=== PATIENT | male | born 1940 | race Two or more races ===

== ENCOUNTER 2020-03-19 09:00 | Outpatient (REF) | payer MEDICARE, SELFPAY ==
[2020-03-19 10:10] LABS: MANUAL DIFF FLAG NO
[2020-03-19 10:17] LABS: Basophils Absolute Auto 0.1 X10*3/uL (0.0-0.2); Basophils Percent Auto 1.1 % (0-2); Eosinophils Absolute Auto 0.1 X10*3/uL (0.0-0.4); Eosinophils Percent Auto 1.4 % (0-4); Hemoglobin 13.7 g/dl (14.0-18.0); Imm Gran Abs Auto 0.03 X10*3/uL (0.00-0.03); Imm Gran Pct Auto 0.4 % (0.0-0.4); Lymphocytes Percent Auto 26.9 % (20-40); Mean Corpuscular HGB Conc 31.1 g/dl (31.0-36.0); Mean Corpuscular Hemoglobin 29.7 pg (27.0-33.0); Mean Corpuscular Volume 95.4 fL (80-98); Mean Platelet Volume 10.3 fL (9.4-12.4); Monocytes Absolute Auto 0.7 X10*3/uL (0.1-1.2); Neutrophils Absolute Auto 4.4 X10*3/uL (2.0-8.3); Neutrophils Percent Auto 60.2 % (45-73); Platelet Count 240 X10*3/uL (160-400); Red Blood Count 4.61 X10*6/uL (4.60-5.80); Red Cell Distribution Width 13.4 % (11.0-16.0); White Blood Count 7.3 X10*3/uL (4.8-10.8)
[2020-03-19 11:00] LABS: Alanine Aminotransferase 22 U/L (0-40); Albumin Level 4.3 g/dL (3.5-5.0); Alkaline Phosphatase 77 U/L (39-117); Anion Gap 12 (12-20); Aspartate Amino Transferase 20 U/L (5-37); Bilirubin Total 0.4 mg/dL (0.0-1.0); Blood Urea Nitrogen 11 mg/dL (9-16); Calcium 9.2 mg/dL (8.4-10.2); Carbon Dioxide 30 mmol/L (22-29); Chloride 104 mmol/L (96-108); Cholesterol 169 mg/dL; Estimated Glomerular Filt Rate 59; Glucose Fasting 84 mg/dL (60-99); HDL Cholesterol 46 mg/dL; Iron 49 mcg/dL (45-160); LDL Cholesterol Calculated 97 mg/dl; Percent Iron Saturation 11 % (15-50); Potassium 4.5 mmol/l (3.3-5.1); Sodium 141 mmol/L (135-145); Total Iron Binding Capacity 442 mcg/dL (228-428); Total Protein 7.5 g/dL (6.5-8.0); Triglycerides 133 mg/dL; Unsaturated Iron Binding 393 ug/dL
== END 2020-03-19 09:01 | disposition home or self-care (01) ==
LOC: HO.LAB 09:00
PROVIDERS: PCP Internal Medicine; Visit Provider Internal Medicine
DX: E78.00 Pure hypercholesterolemia, unspecified (principal); D50.0 Iron deficiency anemia secondary to blood loss (chronic)
CPT/HCPCS: 36415; 80053; 80061; 83540; 85025

== ENCOUNTER 2021-04-17 09:29 | Outpatient (REF) | payer MEDICARE, SELFPAY ==
[2021-04-17 10:26] LABS: Alanine Aminotransferase 14 U/L (0-40); Albumin Level 4.1 g/dL (3.5-5.0); Alkaline Phosphatase 73 U/L (39-117); Anion Gap 11 (12-20); Aspartate Amino Transferase 15 U/L (5-37); Bilirubin Total 0.5 mg/dL (0.0-1.0); Blood Urea Nitrogen 13 mg/dL (9-16); Calcium 9.1 mg/dL (8.4-10.2); Carbon Dioxide 29 mmol/L (22-29); Chloride 106 mmol/L (96-108); Cholesterol 218 mg/dL; Estimated Glomerular Filt Rate > 60; Glucose Fasting 88 mg/dL (60-99); HDL Cholesterol 54 mg/dL; LDL Cholesterol Calculated 142 mg/dl; Potassium 4.8 mmol/L (3.3-5.1); Sodium 141 mmol/L (135-145); Total Protein 7.8 g/dL (6.5-8.0); Triglycerides 110 mg/dL
== END 2021-04-17 09:30 | disposition home or self-care (01) ==
LOC: HO.LAB 09:29
PROVIDERS: PCP Internal Medicine; Visit Provider Internal Medicine
DX: E78.00 Pure hypercholesterolemia, unspecified (principal); E78.5 Hyperlipidemia, unspecified
CPT/HCPCS: 36415; 80053; 80061

== ENCOUNTER 2021-07-16 10:32 | Emergency (ER) | payer MEDICARE, SELFPAY ==
[2021-07-16] VITALS (7 sets, daily range): BP systolic 149–179; BP diastolic 70–91; PULSE 76–98; RESP 16–19; TEMP 36.6–36.9; O2SAT 94–98; BMI 25.0
--- NOTE | ~2021-07-16 | CT_ITS ---
EXAMINATION: CT ABDOMEN AND PELVIS WITH CONTRAST CLINICAL INFORMATION: Hiccups, poor ostomy output, AP. COMPARISON: CT scan abdomen and pelvis 10/26/2017. TECHNIQUE: Multidetector volumetric images were obtained from the superior aspect of the liver through the pubic symphysis following administration 85 mL of Omnipaque 350 intravenous contrast. Sagittal and coronal reformatted images were obtained on the technologist's workstation. Oral contrast: No This CT examination was performed using dose optimization techniques as appropriate, variously including the following: *Automated exposure control *Adjustment of mA and/or kV according to patient size (this includes techniques or standardized protocols for targeted exams where dose is matched to indication/reason for exam; i.e. extremities or head) *Use of iterative reconstruction technique DLP: 691 mGy-cm FINDINGS: LUNG BASES: The visualized lung bases are unremarkable. LIVER, GALLBLADDER, AND BILIARY TREE: The liver is normal in size, shape, and attenuation. No focal hepatic lesion or biliary ductal dilatation is present. Calcified gallstones in the fundus of the gallbladder. No edema around the gallbladder. No bile duct dilatation. PANCREAS: Unremarkable. SPLEEN: Unremarkable. ADRENAL GLANDS: Unremarkable. KIDNEYS AND URETERS: The kidneys are normal in size, shape, and attenuation. No hydronephrosis, hydroureter, or calculi seen. No perinephric stranding. BLADDER: Unremarkable. GASTROINTESTINAL TRACT: Status post partial sigmoidectomy. Left-sided colostomy. There is a parastomal hernia associated with the colostomy involving small-bowel loops that are not obstructed. Kev's pouch present. There is stool and contrast in the Kev's pouch. There are numerous diverticula of the descending colon without evidence of diverticulitis. No bowel obstruction. No bowel wall thickening or edema. Moderate volume of stool in the colon. The appendix is normal. The small-bowel loops are normal. Small hiatal hernia. Stomach is otherwise unremarkable. ABDOMINAL WALL: There is a left-sided mid abdominal parastomal ventral wall hernia. Nonobstructed loops of small bowel extend into the hernia sac. LYMPH NODES: Normal. VASCULAR: Unremarkable. PELVIC VISCERA: Prostate measures 5 cm transverse. OSSEOUS STRUCTURES: Degenerative spondylosis of the spine. No acute osseous abnormality. CT/CT abdomen pelvis w con IMPRESSION: 1. No acute abnormality. 2. Status post sigmoidectomy. Left-sided colostomy. 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 Diverticulosis of descending colon without evidence of diverticulitis. No bowel obstruction or bowel wall thickening or edema. 3. Cholelithiasis. Fleischner guidelines were followed.
--- NOTE | ~2021-07-16 | XR_ITS ---
EXAMINATION: XR CHEST CLINICAL INFORMATION: 4 7 days. COMPARISON: Chest 06/01/2019 TECHNIQUE: 2 views of the chest were obtained. FINDINGS: The lungs are well-expanded and clear acute pneumonic process. The heart size and pulmonary vascularity is normal. There is mild spondylosis dorsal spine. No lytic process seen. XR/XR chest 2V IMPRESSION: Unremarkable chest exam.
--- NOTE | 2021-07-16 12:05 | ED.GENADULT ---
HPI - General Adult General Chief complaint: General Medical Stated complaint: severe hiccups Time Seen by Provider: 07/16/21 11:27 Source: patient and medical interpreter Mode of arrival: ambulatory Limitations: language barrier History of Present Illness HPI narrative: 80-year-old male with a history of colon cancer in 2014 status post resection status post chemotherapy, hypertension, hyperlipidemia here with reports of hiccups x 7 days. Patient reports decreased p.o. intake secondary to hiccups. He also has a colostomy bag which he says he has not had output from since yesterday morning. He reports some abdominal discomfort. No vomiting, fever Related Data Home Medications Medication Instructions Recorded Confirmed amlodipine 2.5 mg tablet 1 tab PO DAILY 03/05/20 04/16/21 aspirin 81 mg tablet,delayed 1 tab PO DAILY 03/05/20 04/16/21 release Previous Rx's Medication Instructions Recorded ostomy adhesive (Stomahesive Paste) 1 appl MISCELLANEOUS Q OTHER DAY 05/14/20 #56.7 g ostomy supplies (Skin Prep Wipes) #50 ea 05/14/20 ostomy supplies 1 3/4 #1 ea 05/14/20 ostomy supplies 1 (Active Life #5 ea 05/14/20 Convex Drainable Pouch) acetaminophen 500 mg tablet 500 mg PO Q6H PRN 30 Days #120 tab 04/16/21 atorvastatin 40 mg tablet 40 mg PO DAILY #90 tab 07/09/21 Allergies Allergy/AdvReac Type Severity Reaction Status Date / Time oxycodone Allergy Intermediate Rash Verified 04/16/21 10:26 Review of Systems Review of Systems: Yes all other systems are reviewed and are negative Constitutional: Constitutional: Reports no additional constitutional complaints, Denies body ache(s), Denies chills, Denies fever(s), Denies headache(s), Reports poor appetite and Denies weakness Eyes: Eyes: Reports no additional eye complaints and Denies change in vision ENT: Reports system reviewed and no additional complaints, except as documented, Denies dizziness, Denies headache(s), Denies nasal congestion, Denies nasal discharge and Denies neck pain Cardiovascular: Cardiovascular: Reports no additional cardiovascular complaints, Denies chest pain, Denies leg edema and Denies dyspnea Respiratory: Respiratory: Reports no additional respiratory complaints, Denies cough and Denies dyspnea Gastrointestinal: Gastrointestinal: Reports no additional gastrointestinal complaints, Reports abdominal pain, Denies diarrhea, Reports nausea and Denies vomiting Comments: +Hiccups Genitourinary: Genitourinary: Denies urinary incontinence Musculoskeletal: Musculoskeletal: Reports no additional musculoskeletal complaints, Denies back pain, Denies arthralgias, Denies joint swelling, Denies neck pain, Denies numbness and Denies tingling Integumentary/Breasts: Skin/Breast: Reports system reviewed and no additional complaints, except as docu and Denies rash Neurologic: Reports system reviewed and no additional complaints, except as documented, Denies dizziness, Denies headache(s), Denies numbness, Denies tingling and Denies weakness PMFSH Past Medical History Attestation statement: The following information was validated with the patient. Source: old records reviewed and nursing notes reviewed Medical History Blurry vision Colostomy in place CVA (cerebral vascular accident) Encounter for physical examination Essential hypertension Left hip pain Neuropathy Pure hypercholesterolemia Surgical History History of hemicolectomy Family History Family History Father Medical history unknown Mother Medical history unknown Social History Social History Housing: Apartment Alcohol intake: current Alcohol intake frequency: a few times a week Alcohol type: beer Patient Tobacco Use Status: Never used Tobacco Tobacco use type: Cigarette e-Cigarette/Vaping Use: Never Used Second Hand Smoke Exposure: No Use of substances other than those prescribed or required for medical reasons: No Advance Directives: No Advance Directives Information Provided: Yes service: No Current occupational status: disabled Physical Exam ED Vital Signs: Vital Signs - 24 hr 07/16/21 10:42 07/16/21 12:44 07/16/21 12:46 Temperature 98 F Pulse Rate 98 81 Respiratory Rate 19 18 Blood Pressure 156/86 H 179/74 H Pulse Oximetry 98 94 07/16/21 12:51 07/16/21 14:49 07/16/21 18:31 Temperature 98.4 F Pulse Rate 78 79 Respiratory Rate 18 16 Blood Pressure 149/70 H 153/79 H Pulse Oximetry 97 97 03// 19:16 Temperature Pulse Rate 76 Respiratory Rate Blood Pressure 151/91 H Pulse Oximetry BMI result Body Mass Index 25.0 Const General: cooperative, healthy appearing, comfortable and no acute distress Orientation/consciousness: patient oriented x3 Limitations: no limitations HENMT Head: Yes normal to inspection Ears: hearing grossly normal bilaterally and TM's normal bilaterally General nose exam: Normal external nose present Face and sinus: Yes normal facial exam Mouth: Normal oral and palatal mucosa present Teeth and gingiva: dentition normal Throat: Yes posterior oropharynx normal, Yes tonsils normal and Yes uvula midline Eyes General: appearance normal, both eyes and all related structures Pupils: Equal, round and reactive pupils present Neck Neck: Yes normal visual inspection, Yes full ROM, Yes no lymphadenopathy and Yes no meningeal signs Chest Chest palpation & inspection: normal inspection of the chest Resp Effort & Inspection: normal respiratory effort Auscultation: clear to auscultation bilaterally Cardio Rate: regular rate Rhythm: regular rhythm Peripheral pulses: Peripheral pulses 2+ throughout GI Other: Colostomy bag the left lower quadrant Abdomen soft and nontender Palpation (GI): Soft to palpation and nontender General: Yes no CVA tenderness Back/Spine/Pelvis Back: no CVA tenderness Skin General skin exam: no rashes or lesions noted Neuro General: patient oriented x3 and no meningeal signs Cranial nerves: Yes CN's II-XII intact bilaterally, Yes Equal, round and reactive pupils present, Yes Bilaterally intact EOM present, Yes Nystagmus not present, Yes Normal facial strength present and Yes Midline tongue present Cognition (Neuro): normal cognition Gait exam (Neuro): Normal gait present Motor exam (neuro): 5/5 motor strength present throughout Sensory Exam: Normal double simultaneous stimulation for sensation Extrem General: Yes normal to inspection, Yes no pedal edema and Yes no calf tenderness Course Course Course Narrative: 80-year-old male here with intractable hiccups for 7 days. Patient has remote history of colon cancer status post resection. Anticipate patient will need CT abdomen and pelvis to eval for mass. Meanwhile will check labs, chest x-ray, EKG d/t age. Trial benzo as thorazine contraindicated in this age [age]-continued hiccups, will trial baclofen 5-hiccups improved but not resolved. Labs, chest x-ray, CT abdomen and pelvis show no acute finding. Will trial reglan/benadryl 1800-Continued hiccups. Will give single dose 25mg IM thorazine. 1840-hiccups are resolved. Plan for discharge home. Reviewed worrisome signs and symptoms when to return to the emergency department. Comfortable discharge home. Medical Decision Making MDM Narrative Medical decision making narrative: intractable hiccups mass acs Medical Records Medical records reviewed: Yes I reviewed the patient's medical records. Lab Data Lab results reviewed: Yes I reviewed the patient's lab results. Result diagrams: 07/16/21 12:33 07/16/21 12:41 Labs: Lab Results 07/16/21 07/16/21 Range/Units 12:33 12:41 WBC 9.6 (4.8-10.8) X10*3/uL RBC 4.71 (4.60-5.80) X10*6/uL Hgb 15.0 (14.0-18.0) g/dl Hct 45.9 (42.0-52.0) % MCV 97.5 (80.0-98.0) fL MCH 31.8 (27.0-33.0) pg MCHC 32.7 (31.0-36.0) g/dl RDW 12.8 (11.0-16.0) % Plt Count 228 (160-400) X10*3/uL MPV 10.2 (9.4-12.4) fL Immature Gran % (Auto) 0.4 (0.0-0.4) % Neut % (Auto) 70.5 (45-73) % Lymph % (Auto) 17.7 L (20-40) % [place] % (Auto) 10.3 (2-11) % Eos % (Auto) 0.6 (0-4) % Baso % (Auto) 0.5 (0-2) % Lymph # (Auto) 1.7 (1.2-4.9) X10*3/uL [place] # (Auto) 1.0 (0.1-1.2) X10*3/uL Eos # (Auto) 0.1 (0.0-0.4) X10*3/uL Baso # (Auto) 0.1 (0.0-0.2) X10*3/uL Abs Immat Gran (auto) 0.04 H (0.00-0.03) X10*3/uL Absolute Neuts (auto) 6.8 (2.0-8.3) x10*3/uL Absolute Nucleated RBC 0.000 (0.0-0.012) X10*3/uL Nucleated RBC % (auto) 0.0 (0.0-0.2) /100WBC Sodium 142 (135-145) mmol/L Potassium 4.4 (3.3-5.1) mmol/L Chloride 102 (96-108) mmol/L Carbon Dioxide 31 H (22-29) mmol/L Anion Gap 13 (12-20) BUN 18 H (9-16) mg/dL Creatinine 1.07 (0.5-1.4) mg/dL Estim Creat Clear Calc 48.6 Estimated GFR > 60 Random Glucose 82 (60-115) mg/dL Calcium 9.8 D (8.4-10.2) mg/dL Magnesium 2.3 (1.6-2.6) mg/dL Total Bilirubin 0.9 (0.0-1.0) mg/dL Direct Bilirubin 0.4 (0.0-0.5) mg/dL AST 16 (5-37) U/L ALT 15 (0-40) U/L Alkaline Phosphatase 83 (39-117) U/L Total Protein 7.9 (6.5-8.0) g/dL Albumin 4.4 (3.5-5.0) g/dL Imaging Data Chest x-ray: Attestation: I personally reviewed and interpreted this imaging study as follows: Radiologist's impression: [place] [id number] XRay Report Signed Patient: Nelson Terrell MR#: [id number] : 1940 Acct:[id number] Age/Sex: 80 / M ADM Date: 07/16/21 Loc: .ED Attending Dr: Ordering Physician: Vi Garcia NP Date of Service: 07/16/21 Procedure(s): XR chest 2V Accession Number(s): [id number] cc: Vi Garcia NP~ EXAMINATION: XR CHEST CLINICAL INFORMATION: 4 7 days. COMPARISON: Chest 06/01/2019 TECHNIQUE: 2 views of the chest were obtained. FINDINGS: The lungs are well-expanded and clear acute pneumonic process. The heart size and pulmonary vascularity is normal. There is mild spondylosis dorsal spine. No lytic process seen. XR/XR chest 2V IMPRESSION: Unremarkable chest exam. CT scan - abdomen: Attestation: I personally reviewed and interpreted this imaging study as follows: Radiologist's impression: FINDINGS: LUNG BASES: The visualized lung bases are unremarkable.? LIVER, GALLBLADDER, AND BILIARY TREE: The liver is normal in size, shape, and attenuation. No focal hepatic lesion or biliary ductal dilatation is present. Calcified gallstones in the fundus of the gallbladder. No edema around the gallbladder. No bile duct dilatation. PANCREAS: Unremarkable.? SPLEEN: Unremarkable.? ADRENAL GLANDS: Unremarkable.? KIDNEYS AND URETERS: The kidneys are normal in size, shape, and attenuation. No hydronephrosis, hydroureter, or calculi seen. No perinephric stranding. ? BLADDER: Unremarkable.? GASTROINTESTINAL TRACT: Status post partial sigmoidectomy. Left-sided colostomy. There is a parastomal hernia associated with the colostomy involving small-bowel loops that are not obstructed. Kev's pouch present. There is stool and contrast in the Kev's pouch. There are numerous diverticula of the descending colon without evidence of diverticulitis. No bowel obstruction. No bowel wall thickening or edema. Moderate volume of stool in the colon. The appendix is normal. The small-bowel loops are normal. Small hiatal hernia. Stomach is otherwise unremarkable.? ABDOMINAL WALL: There is a left-sided mid abdominal parastomal ventral wall hernia. Nonobstructed loops of small bowel extend into the hernia sac. LYMPH NODES: Normal. VASCULAR: Unremarkable. PELVIC VISCERA: Prostate measures 5 cm transverse.? OSSEOUS STRUCTURES: Degenerative spondylosis of the spine. No acute osseous abnormality.? CT/CT abdomen pelvis w con IMPRESSION: 1. No acute abnormality. ? 2. Status post sigmoidectomy. Left-sided colostomy. 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 Diverticulosis of descending colon without evidence of diverticulitis. No bowel obstruction or bowel wall thickening or edema. ? 3. Cholelithiasis. ? Fleischner guidelines were followed. Discharge Plan Discharge Clinical Impression: Hiccups Patient Disposition: Home, Self-Care Instructions: Hiccups (ED) Prescriptions: No Action (DME) Active Life Convex Drain Pouch 1 misc See Rx Instructions .ROUTE .MEDSUPPLY Qty: 5 5RF Rx Instructions: As directed (DME) ostomy supplies 1 3/4 misc See Rx Instructions .ROUTE .MEDSUPPLY Qty: 1 5RF Rx Instructions: As directed Stomahesive Paste Paste 1 appl miscellaneous Q OTHER DAY Qty: 56.7 5RF (DME) Skin Prep Wipes Misc See Rx Instructions .ROUTE .MEDSUPPLY Qty: 50 3RF Rx Instructions: As directed, atorvastatin 40 mg tablet 40 mg PO DAILY Qty: 90 3RF amlodipine 2.5 mg tablet 1 tab PO DAILY 0RF aspirin 81 mg tablet,delayed release (DR/EC) 1 tab PO DAILY 0RF acetaminophen 500 mg tablet 500 mg PO Q6H PRN (Reason: Pain) 30 Days Qty: 120 4RF Referrals: Yolande Reyna MD [Primary Care Provider] - 5 days Interventions: ED Discharge Assessment Last Done: 07/16/21 19:19 Discharge Date/Time: 07/16/21 19:21 Print Language: Bangladeshi
--- NOTE | 2021-07-16 12:24 | ECG_ITS ---
Test Reason : HICCUPS Blood Pressure : / mmHG Vent. Rate : 077 BPM Atrial Rate : 077 BPM P-R Int : 190 ms QRS Dur : 086 ms QT Int : 410 ms P-R-T Axes : 029 039 041 degrees QTc Int : 463 ms Normal sinus rhythm Normal ECG When compared with ECG of 01-JUN-2019 10:30, No significant change was found Referred By: Vi Garcia Electronically Signed By:LUNA NÚÑEZ
[2021-07-16 12:48] LABS: MANUAL DIFF FLAG NO
--- NOTE | 2021-07-16 12:49 | PC.NURSE ---
pt presents with mild hiccups, does not c/o pain but discomfort r/t continuous hiccups
[2021-07-16 12:51] LABS: Basophils Absolute Auto 0.1 X10*3/uL (0.0-0.2); Basophils Percent Auto 0.5 % (0-2); Eosinophils Absolute Auto 0.1 X10*3/uL (0.0-0.4); Eosinophils Percent Auto 0.6 % (0-4); Hematocrit 45.9 % (42.0-52.0); Imm Gran Abs Auto 0.04 X10*3/uL (0.00-0.03); Imm Gran Pct Auto 0.4 % (0.0-0.4); Lymphocytes Absolute Auto 1.7 X10*3/uL (1.2-4.9); Lymphocytes Percent Auto 17.7 % (20-40); Mean Corpuscular HGB Conc 32.7 g/dl (31.0-36.0); Mean Corpuscular Hemoglobin 31.8 pg (27.0-33.0); Mean Corpuscular Volume 97.5 fL (80.0-98.0); Mean Platelet Volume 10.2 fL (9.4-12.4); Monocytes Percent Auto 10.3 % (2-11); Neutrophils Absolute Auto 6.8 x10*3/uL (2.0-8.3); Neutrophils Percent Auto 70.5 % (45-73); Platelet Count 228 X10*3/uL (160-400); Red Blood Count 4.71 X10*6/uL (4.60-5.80); Red Cell Distribution Width 12.8 % (11.0-16.0); White Blood Count 9.6 X10*3/uL (4.8-10.8)
[2021-07-16] MEDS: LORazepam 2 MG/ML VIAL 1 MG IVPUSH (12:59)
[2021-07-16 13:17] LABS: Alanine Aminotransferase 15 U/L (0-40); Albumin Level 4.4 g/dL (3.5-5.0); Alkaline Phosphatase 83 U/L (39-117); Anion Gap 13 (12-20); Aspartate Amino Transferase 16 U/L (5-37); Bilirubin Direct 0.4 mg/dL (0.0-0.5); Bilirubin Total 0.9 mg/dL (0.0-1.0); Blood Urea Nitrogen 18 mg/dL (9-16); Calcium 9.8 mg/dL (8.4-10.2); Carbon Dioxide 31 mmol/L (22-29); Chloride 102 mmol/L (96-108); Creatinine Clr Calc Pharmacy 48.6; Estimated Glomerular Filt Rate > 60; Glucose Random 82 mg/dL (60-115); Magnesium 2.3 mg/dL (1.6-2.6); Potassium 4.4 mmol/L (3.3-5.1); Sodium 142 mmol/L (135-145); Total Protein 7.9 g/dL (6.5-8.0)
[2021-07-16] MEDS: iohexoL 350 MG/ML 100 ML INFUS..BTL IV (14:50)
--- NOTE | 2021-07-16 14:50 | PC.NURSE ---
pt alert and oriented, skin appropriate for ethnicity, pt appear more relaxed but still continuos with the hiccups, pt denies pain, vs stable
[2021-07-16] MEDS: Baclofen 10 MG TABLET PO (15:13)
[2021-07-16] MEDS: Metoclopramide HCl 10 MG/2 ML VIAL IVPUSH (17:04)
[2021-07-16] MEDS: diphenhydrAMINE HCL 50 MG/ML VIAL 25 MG IVPUSH (17:04)
== END 2021-07-16 19:21 | disposition home or self-care (01) ==
PROVIDERS: Nurse Practitioner Family; Emergency Provider Emergency Medicine; PCP Internal Medicine
DX: R06.6 Hiccough (principal); I10 Essential (primary) hypertension; E78.5 Hyperlipidemia, unspecified; Z85.038 Personal history of other malignant neoplasm of large intestine; Z93.3 Colostomy status; Z79.82 Long term (current) use of aspirin; Z79.02 Long term (current) use of antithrombotics/antiplatelets
CPT/HCPCS: 36415; 71046; 74177; 80048; 80076; 83735; 85025; 93005; 96372; 96374; 96375; 99284; 99285; J1200; J2060; J2765; J3230; Q9967

== ENCOUNTER → 2021-08-27 13:51 | Outpatient (BNVA) | payer MEDICARE, SELFPAY | PROVIDERS: PCP Internal Medicine; Referring Provider Internal Medicine; Visit Provider Surgery | DX: K43.5 Parastomal hernia without obstruction or gangrene (principal) | CPT/HCPCS: 99202 ==

== ENCOUNTER 2023-11-23 14:36 | Outpatient (AMB) | payer MEDICARE, SELFPAY ==
--- NOTE | 2023-11-23 14:42 | A.OFFPC_ITS ---
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 Accompanied by: Self / Same As Patient Allergies oxycodone Allergy (Intermediate, Verified 11/23/23 15:05) Rash Medication List - Last Reconciled 11/23/23 by Yolande Moseley MD acetaminophen 500 mg PO Q6H PRN 30 days aspirin 1 tab PO DAILY atorvastatin 40 mg PO DAILY lisinopril 10 mg PO DAILY 90 days ostomy adhesive (Stomahesive Paste) 1 appl miscellaneous Q OTHER DAY ostomy supplies (Active Life Convex Drainable Pouch) As directed ostomy supplies As directed ostomy supplies (Skin Prep Wipes) As directed, Tobacco use date assessed: 11/23/23 Fall risk assessment: No Falls in past year Last assessed Fall Risk: 11/23/23 Dental Screening Dental Screen Date: 11/23/23 Did you have a dental visit in the last 12 months?: No Did you have a dental problem in the last 6 months where you did not have access to dental care?: No Was dental information given to patient?: Patient declined HPI HPI Comments History of Present Illness Details This is an 83 year male that comes for his physical exam. Walks with a cane for gait stability. No acute complaints. Was advised to cut down on drinking alcohol. [facility] Medical History Blurry vision Encounter for physical examination Pure hypercholesterolemia Essential hypertension Colostomy in place CVA (cerebral vascular accident) Left hip pain Neuropathy Surgical History History of hemicolectomy Family History Father Medical history unknown Mother Medical history unknown Social History (Updated 11/23/23 @ 15:08 by Yolande Moseley MD) Housing: Apartment Alcohol intake: current Alcohol intake frequency: a few times a week Alcohol type: beer Patient Tobacco Use Status: Former Tobacco user Tobacco use type: Cigarette e-Cigarette/Vaping Use: Never Used Second Hand Smoke Exposure: No service: No Current occupational status: disabled Cognitive needs: Yes Hearing needs: No Vision needs: Yes Questionnaire PHQ-9 Over the last 2 weeks, how often have you been bothered by any of the following problems? 1. Little interest or pleasure in doing things: not at all 2. Feeling down, depressed, or hopeless: not at all 3. Trouble falling or staying asleep, or sleeping too much: not at all 4. Feeling tired or having little energy: not at all 5. Poor appetite or overeating: not at all 6. Feeling bad about yourself - or that you are a failure or have let yourself or your family down: not at all 7. Trouble concentrating on things, such as reading the newspaper or watching television: not at all 8. Moving or speaking so slowly that other people could have noticed. Or the opposite - being so fidgety or restless that you have been moving around a lot more than usual: not at all 9. Thoughts that you would be better off or of hurting yourself in some way: not at all Total score: 0 Depression Screening Interpretation: Negative Depression Screening Done: Yes 60285 - PHQ-9 Billing: Yes Source: Developed by Drs. Bunny Lomax, Tequila Blanton, Yonatan Kim and colleagues, with an educational anuja from [employer]. Thrive Questionnaire Date Thrive assessed: 11/23/23 I am a: Patient What is your living situation today?: I have a steady place to live Within the past 12 months, did the food you bought not last and you didn't have the money to get more?: Never true Within the past 12 months, did you worry whether your food would run out before you got money to buy more?: Never true Do you have trouble paying for medicines?: No Do you have trouble getting transportation to medical appointments?: No Do you have trouble paying your heating and electricity bill?: No Do you have trouble taking care of your child, family member or friend?: No Do you have trouble with day-to-day activities such as bathing, preparing meals, shopping, managing finances, etc.?: No Are you currently unemployed and looking for a job?: No Are you interested in more education?: No Please select the resources that you would like help with: None Currently or been in a relationship where the following occur: No concerns reported THRIVE Score: 0 AUDIT C Alcohol Use Questionnaire (AUDIT-C) 1. How often do you have a drink containing alcohol?: 4 or more times a week 2. How many drinks containing alcohol do you have on a typical day when you are drinking?: 1 or 2 3. How often do you have six or more drinks on one occasion?: Never Total Score: 4 Score Reviewed/Action Taken: Yes ZENY-7 AMB Questionnaire ZENY-7 Date ZENY - 7 assessed: 11/23/23 Feeling nervous, anxious, or on edge: 0 = Not at all Not being able to stop or control worryin = Not at all Worrying too much about different things: 0 = Not at all Trouble relaxin = Not at all Being so restless that it is hard to sit still: 0 = Not at all Becoming easily annoyed or irritable: 0 = Not at all Feeling afraid as if something awful might happen: 0 = Not at all Total ZENY-7 score (0-4 normal; 5-9 mild; 10-14 moderate; 15-21 severe): 0 Source: Developed by Drs. Bunny Lomax, Tequila Blanton, Yonatan Kim and colleagues, with an educational anuja from [employer]. ZENY-7 Assessment Billing ZENY-7 Assessment Tool: ZENY-7 Assessment 62547 Review of Systems Const All systems reviewed & are unremarkable except as noted in HPI and below Card Denies chest pain at rest, Denies chest pain with activity, Denies edema, Denies irregular heart rhythm, Denies claudication, Denies dyspnea, Denies dyspnea on exertion, Denies orthopnea, Denies paroxysmal nocturnal dyspnea and Denies slow heart rate Resp Denies cough, Denies dyspnea and Denies dyspnea on exertion GI Denies abdominal pain, Denies change in bowel habits, Denies excessive flatus, Denies nausea and Denies vomiting Physical exam (Primary Care) Vital Signs: Last Vital Signs BP 138/82 11/23/23 14:44 BMI result Body Mass Index 27.1 Tobacco/Smoking Status: Tobacco use Status Tobacco use date assessed 11/23/23 11/23/23 14:56 Patient Tobacco Use Status Former Tobacco user 11/23/23 15:08 Tobacco use type Cigarette 11/23/23 15:08 e-Cigarette/Vaping Use Never Used 11/23/23 15:08 PHQ-9: PHQ-9 Score PHQ-9: Total score 0 11/23/23 15:09 Depression Screening Interpretation: Negative Thrive Assessment: Date of Thrive Assessment Date Thrive assessed 11/23/23 11/23/23 14:56 Currently or been in a relationship where the following occur: No concerns reported Const Orientation/consciousness: patient oriented x3 Limitations: ambulation with cane HENMT Head: Yes normal to inspection, Yes normocephalic and Yes atraumatic Ears: external ears normal Eyes General: appearance normal, both eyes and all related structures Eyelids: Yes eyelids normal Conjunctivae: conjunctivae normal Neck Neck: Yes normal visual inspection and Yes supple Resp Effort & Inspection: normal respiratory effort Auscultation: clear to auscultation bilaterally Cardio Jugular venous distension: no JVD Rate: regular rate Rhythm: regular rhythm Heart sounds: S1 normal heart sound present and S2 normal heart sound present GI Inspection: Yes normal to inspection Palpation (GI): Soft to palpation and nontender Auscultation: normal bowel sounds Skin General skin exam: no rashes or lesions noted Neuro General: patient oriented x3 and no focal motor deficits Extrem General: Yes full ROM Psych Appearance: grossly normal Assessment and Plan Assessment & Plan (1) Physical exam: Code(s): Z00.00 - Encounter for general adult medical examination without abnormal findings Plan: Repeat in a year. Orders: Orders Comprehensive [place]. Panel Fast Today Z00.00 - Encounter for general adult medical examination without abnormal findings Lipid Panel Today E78.5 - Hyperlipidemia, unspecified Medications: Changed From aspirin 1 tab PO DAILY To aspirin 81 mg PO DAILY 90 tabs 1RF 90 days Refilled atorvastatin 40 mg PO DAILY 90 tabs 3RF lisinopril 10 mg PO DAILY 90 tabs 1RF 90 days I10 - Essential (primary) hypertension Coding Level of Care Code Est Pt Prev Care >65y(19099) Diagnoses Physical exam Z00.00 Additional Codes ZENY-7 Assessment Billing - ZENY-7 Assessment Tool: ZENY-7 Assessment 20900 ([id number]) Time Spent (min) 30
[2023-11-23 14:44] VITALS: BP 138/82; BMI 27.1
== END 2023-11-23 15:16 | disposition home or self-care (01) ==
PROVIDERS: PCP Internal Medicine; Visit Provider Internal Medicine
DX: Z00.00 Encounter for general adult medical examination without abnormal findings (principal)
CPT/HCPCS: 99397

== ENCOUNTER 2023-12-05 09:40 | Outpatient (REF) | payer MEDICARE, SELFPAY ==
[2023-12-05 11:19] LABS: Alanine Aminotransferase 42 U/L (0-40); Albumin Level 3.9 g/dL (3.5-5.0); Alkaline Phosphatase 107 U/L (39-117); Anion Gap 11 (12-20); Aspartate Amino Transferase 31 U/L (5-37); Bilirubin Total 0.3 mg/dL (0.0-1.0); Blood Urea Nitrogen 24 mg/dL (9-16); Calcium 9.6 mg/dL (8.4-10.2); Carbon Dioxide 25 mmol/L (22-29); Chloride 108 mmol/L (96-108); Cholesterol 129 mg/dL (<200); Estimated Glomerular Filt Rate > 60; Glucose Fasting 100 mg/dL (60-99); HDL Cholesterol 35 mg/dL (>40); LDL Cholesterol Calculated 73 mg/dL (<100); Sodium 140 mmol/L (135-145); Total Protein 7.4 g/dL (6.5-8.0); Triglycerides 108 mg/dL (<150)
== END 2023-12-05 09:41 | disposition home or self-care (01) ==
LOC: HO.LAB 09:40
PROVIDERS: PCP Internal Medicine; Visit Provider Internal Medicine
DX: Z00.00 Encounter for general adult medical examination without abnormal findings (principal); E78.5 Hyperlipidemia, unspecified
CPT/HCPCS: 36415; 80053; 80061

== ENCOUNTER 2024-12-06 15:35 | Outpatient (AMB) | payer MEDICARE, SELFPAY ==
--- OUTSIDE RECORDS SUMMARY | 2024-12-06 15:38 | XMS_ITS ---
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, Ofelia Address [address] [place] [address] Phone [phone] Organization [facility] [employer] [facility] Care Team Providers Care Swing Manager Name Role Phone Ofelia St Unavailable [phone] BETY JERNIGAN Unavailable [phone] Reason for Referral Not Available Allergies, adverse reactions, alerts No known allergies History of medication use Medication Class Instructions Start Date End Date Atorvastatin Calcium 40 mg Tab TOME [place] TABLETA TODOS LOS D 2021-07-09 No Data Available Lisinopril 10 mg Tab [place] TABLETA TO DOS LOS D 2021-10-15 No Data Available Acetaminophen 500 mg Tab 1 tablets orall y every 6 hours as needed 2022-03-08 No Data Available Aspirin EC 81 mg Tab delayed rel take 1 tablet by mouth daily 2022-03-08 No Data Available Problem List Problem Status Onset Date Resolved Date Synopsis HTN (hypertension) Active 2022-03-05 N/A Lisino prilFollows with PCP every 5-6 months. Recommend continued daily walking, monitor BP regularly. Call [facility] with any elevated BP.ECCA Update 12/15/22:Follows up with PCP once a year. Reports BP has been well controlled. Last BP 132/72 taken by home nurse from [facility] on 11/18/22. Taking:Lisinopril 10 mg Tab QDAdvised to follow low Sodium, low fat, low carb, heart healthy diet.Continue treatment as prescribed. Follow up with PCP as scheduled.Contact CB 22/11 as needed. HLD (hyperlipidemia) Active 2022-03-05 N/A ator vastatinFollows with PCP every 5-6 monthsDiet and exercise. Continue to follow with PCP regularly. ECCA Update 12/15/22:Follows up with PCP once a year.Denies any acute complaint.Taking:Atorvastatin Calcium 40 mg QDAdvised to follow low fat, low carb, heart healthy diet.Continue treatment as prescribed. Follow up with PCP as scheduled.Contact CB 22/11 as needed. History of CVA (cerebrovascular accident) Active 2022-12-14 N/A History of CVA (cerebrovascular accident) in 2019No residual effects. Uses cane for support. Denies any acute complaint. Other problems related to medical facilities and other health care Active 2023-07-12 N/A When membe r to call: 1. If bp is elevated sbp>150; dbp>90 or symptomatic-h/a, dizziness, cp, sob. 2. if there is a fall 3. if BS >300 or BS<90 or symptomatic; i.e., dizzy, off balance , shaky, general weakness. 4. if UTI symptoms arise-urinary frequency, dysuria, low abd pain. 5. if pain in knees increases/ or joint pain increased [facility]. 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 11/10/23: He reports chronic L leg pain, he is taking tylenol with good effect. Colostomy statusHistory of malignant neoplasm of colon Active 2022-03-05 N/A Colostomy s/p co jeet resection 2019. Reports no longer follows with Oncology. Follows with GI yearly for colostomy. Denies any GI complaints. Does not follow up with Oncologist or GI anymore only with PCP.Denies any complaints.Denies any issues with Colostomy. Encounters Encounters Type Facility Date of Service Diagnosis/Co mplaint New patient,40-59min; chronic exacerbation, 2 stable chronic or 1 acute illness add add modifier 95 for video (do not use for phone, instead use 15946-09) [facility] ([place]) 03/08/2022 Essential (primary) hypertensionHyperlipidemia, unspecifiedColostomy status New patient,40-59min; chronic exacerbation, 2 stable chronic or 1 acute illness add add modifier 95 for video (do not use for phone, instead use 33751-70) [facility], ([place]) 03/08/2022 New patient,40-59min; chronic exacerbation, 2 stable chronic or 1 acute illness add add modifier 95 for video (do not use for phone, instead use 62189-07) [facility] [place]20[place] New patient,40-59min; chronic exacerbation, 2 stable chronic or 1 acute illness add add modifier 95 for video (do not use for phone, instead use 64381-52) [facility] [place]20[place] New patient,40-59min; chronic exacerbation, 2 stable chronic or 1 acute illness add add modifier 95 for video (do not use for phone, instead use 95388-66) [facility] [place] New patient,40-59min; chronic exacerbation, 2 stable chronic or 1 acute illness add add modifier 95 for video (do not use for phone, instead use 74303-20) [facility] [place] New patient,40-59min; chronic exacerbation, 2 stable chronic or 1 acute illness add add modifier 95 for video (do not use for phone, instead use 76851-76) [facility] [place]2022 New patient,40-59min; chronic exacerbation, 2 stable chronic or 1 acute illness add add modifier 95 for video (do not use for phone, instead use 16752-64) [facility] ([place]2022 New patient,40-59min; chronic exacerbation, 2 stable chronic or 1 acute illness add add modifier 95 for video (do not use for phone, instead use 45673-51) [facility] ([place]20[place] Estab. patient 30-39min; chronic exacerbation, 2 stable chronic or 1 acute illness add add modifier 95 for video, (do not use for phone, instead use 74556-93) [facility] [place]2022 Colostomy statusPersonal history of other malignant neoplasm of large intestineEssential (primary) hypertensionHyperlipidemia, unspecifiedPrsnl hx of TIA (TIA), and cereb infrc w/o resid deficitsOther chronic pain Estab. patient 30-39min; chronic exacerbation, 2 stable chronic or 1 acute illness add add modifier 95 for video, (do not use for phone, instead use 51127-15) [facility], ([place]) 12[place]20[place] Estab. patient 30-39min; chronic exacerbation, 2 stable chronic or 1 acute illness add add modifier 95 for video, (do not use for phone, instead use 12994-42) [facility] ([place] 12[place]20[place] Estab. patient 30-39min; chronic exacerbation, 2 stable chronic or 1 acute illness add add modifier 95 for video, (do not use for phone, instead use 25107-17) [facility] ([place]20[place] Estab. patient 30-39min; chronic exacerbation, 2 stable chronic or 1 acute illness add add modifier 95 for video, (do not use for phone, instead use 74238-50) [facility] ([place]20[place] Estab. patient 30-39min; chronic exacerbation, 2 stable chronic or 1 acute illness add add modifier 95 for video, (do not use for phone, instead use 23705-77) [facility] ([place]20[place] Estab. patient 30-39min; chronic exacerbation, 2 stable chronic or 1 acute illness add add modifier 95 for video, (do not use for phone, instead use 47240-96) [facility] ([place]20[place] Estab. patient 30-39min; chronic exacerbation, 2 stable chronic or 1 acute illness add add modifier 95 for video, (do not use for phone, instead use 07625-03) [facility] ([place]20[place] Estab. patient 30-39min; chronic exacerbation, 2 stable chronic or 1 acute illness add add modifier 95 for video, (do not use for phone, instead use 95953-55) [facility] ([place]20[place] Estab. patient 30-39min; chronic exacerbation, 2 stable chronic or 1 acute illness add add modifier 95 for video, (do not use for phone, instead use 33345-34) [facility] ([place] 12[place]/20[place] Estab. patient 30-39min; chronic exacerbation, 2 stable chronic or 1 acute illness add add modifier 95 for video, (do not use for phone, instead use 73081-64) [facility] [place]2023 Essential (primary) hypertensionHyperlipidemia, unspecifiedOther chronic painColostomy statusPersonal history of other malignant neoplasm of large intestineOther problems related to medical facilities and other health carePrsnl hx of TIA (TIA), and cereb infrc w/o resid deficits Estab. patient 30-39min; chronic exacerbation, 2 stable chronic or 1 acute illness add add modifier 95 for video, (do not use for phone, instead use 23416-76) [facility] [place] Estab. patient 30-39min; chronic exacerbation, 2 stable chronic or 1 acute illness add add modifier 95 for video, (do not use for phone, instead use 62047-35) [facility] [place]20[place] Estab. patient 30-39min; chronic exacerbation, 2 stable chronic or 1 acute illness add add modifier 95 for video, (do not use for phone, instead use 18634-09) [facility] [place]20[place] Estab. patient 30-39min; chronic exacerbation, 2 stable chronic or 1 acute illness add add modifier 95 for video, (do not use for phone, instead use 23245-39) [facility] [place] Estab. patient 30-39min; chronic exacerbation, 2 stable chronic or 1 acute illness add add modifier 95 for video, (do not use for phone, instead use 28178-78) [facility] [place]2023 Estab. patient 30-39min; chronic exacerbation, 2 stable chronic or 1 acute illness add add modifier 95 for video, (do not use for phone, instead use 65643-31) [facility] ([place]/2023 Estab. patient 30-39min; chronic exacerbation, 2 stable chronic or 1 acute illness add add modifier 95 for video, (do not use for phone, instead use 79079-73) [facility] [place]/2023 Vital Signs Date of Collection Vitals 2022-03-08 08:41:45 Height - 165.1 cmWei ght - 69.85 kgBody Mass Index (BMI) - 25.63 kg/m2BP Diastolic - 80.0 mm[Hg]BP Systolic - 120.0 mm[Hg] 2022-12-15 07:17:24 Height - 162.56 cmWe ight - 68.04 kgBody Mass Index (BMI) - 25.75 kg/m2BP Diastolic - 72.0 mm[Hg]BP Systolic - 132.0 mm[Hg]Pain Scale - 0.0 {score} 2023-11-10 11:33:12 Weight - 68.04 kgBod y Mass Index (BMI) - 25.75 kg/m2 Social History Social History Social History Observation Description Effec tive Time Current Smoking Status Former smoker 7 Sex Male History of Procedures Procedures Service Procedure code Service date Servicing provider Phone# New patient,40-59min; chronic exacerbation, 2 stable chronic or 1 acute illness add add modifier 95 for video (do not use for phone, instead use 76744-42) 01652 2022-03-08 No Data Available No Data Availa ble Medication List Documented (1159F) 1159F 2022-03-08 No Data Available No Data Bianca ilable Medication Review by prescribing provider or pharmacist documented (1160F) 1160F 2022-03-08 No Data Available No Data Bianca ilable Functional Status Assessed (1170F) 1170F 2022-03-08 No Data Available No Data Avail able Advance Care Directive Advance care planning discussion documented in the medical record (1158F) 1158F 2022-03-08 No Data Available No Data Availa ble BMI obtained (3008F) 3008F 2022-03-08 No Data Availab le No Data Available SBP < 130 (3074F) 3074F 2022-03-08 No Data Available No Data Available DBP <80 (3078F) 3078F 2022-03-08 No Data Available No Data Available Pain Assessment - Pain Documented on a Pain Scale (1125F) 1125F 2022-03-08 No Data Available No Data Bianca ilable Estab. patient 30-39min; chronic exacerbation, 2 stable chronic or 1 acute illness add add modifier 95 for video, (do not use for phone, instead use 11604-31) 48534 2022-12-15 No Data Available No Data Availa ble Medication List Documented (1159F) 1159F 2022-12-15 No Data Available No Data Bianca ilable Medication Review by prescribing provider or pharmacist documented (1160F) 1160F 2022-12-15 No Data Available No Data Bianca ilable Functional Status Assessed (1170F) 1170F 2022-12-15 No Data Available No Data Avail able Pain Assessment - NO pain present (1126F) 1126F 2022-12-15 No Data Available No Data A vailable Advance Care Directive Advance care planning discussion documented in the medical record (1158F) 1158F 2022-12-15 No Data Available No Data Availa ble BMI obtained (3008F) 3008F 2022-12-15 No Data Availab le No Data Available SBP 130-139 (3075F) 3075F 2022-12-15 No Data Availabl e No Data Available DBP <80 (3078F) 3078F 2022-12-15 No Data Available No Data Available Advance care planning discussed and documented in the medical record beneficiary/patient did not wish to or was unable to provide an advance care plan or name a surrogate decision-maker. (1124F) 1124F 2022-12-15 No Data Available No Data Availa ble Estab. patient 30-39min; chronic exacerbation, 2 stable chronic or 1 acute illness add add modifier 95 for video, (do not use for phone, instead use 41251-76) 16654 2023-11-10 No Data Available No Data Availa ble Medication List Documented (1159F) 1159F 2023-11-10 No Data Available No Data Bianca ilable Medication Review by prescribing provider or pharmacist documented (1160F) 1160F 2023-11-10 No Data Available No Data Bianca ilable BMI obtained (3008F) 3008F 2023-11-10 No Data Availab le No Data Available Advance Care Directive Advance care planning discussion documented in the medical record (1158F) 1158F 2023-11-10 No Data Available No Data Availa ble Advance care planning discussed and documented advance care plan or surrogate decision-maker was documented in the medical record. (1123F) 1123F 2023-11-10 No Data Available No Data Availa ble Pain Assessment - Pain Documented on a Pain Scale (1125F) 1125F 2023-11-10 No Data Available No Data Bianca ilable Functional Status Assessed (1170F) 1170F 2023-11-10 No Data Available No Data Avail able Functional Status Functional Category Effective Dates Ambulates with cane. 2022-03-08 Activities of Daily Livin2022-12-15 Bathing: Independent 2022-12-15 Dressing: Independent 2022-12-15 Eating: Independent 2022-12-15 Ambulation/Walking: Needs Assistance, us es cane to ambulate. 2022-12-15 Toileting: Independent 2022-12-15 Transferring: Independent 2022-12-15 Mental Status Status Date Alert and oriented x3 2022-03-08 Assessments Date of Service Assessments 2022-03-08 08:41:45 Colostomy statusHTN (hypertension)HLD (hyperlipidemia) 2022-12-15 07:17:24 Colostomy statusHist ory of malignant neoplasm of colonHTN (hypertension)HLD (hyperlipidemia)History of CVA (cerebrovascular accident)Chronic pain 2023-11-10 11:33:12 Colostomy statusHist ory of malignant neoplasm of colonHTN (hypertension)HLD (hyperlipidemia)History of CVA (cerebrovascular accident)Chronic painOther problems related to medical facilities and other health care Plan of Care Date of Service Plans 2022-03-08 08:41:45 Medication Review by prescribing provider or pharmacist documented (1160F)Medication List Documented (1159F)Functional Status Assessed (1170F)Advance Care Directive Advance care planning discussion documented in the medical record (1158F)BMI obtained (3008F)SBP < 130 (3074F)DBP <80 (3078F)Televideo new patient,40-59min; chronic exacerbation, 2 stable chronic or 1 acute illness add modifier 95Pain Assessment - Pain Documented (1125F)Continue to see PCP. Follow-up with [facility] as needed for any acute or disease education needs that may arise.Colostomy s/p colon resection 2019. Reports no longer follows with Oncology. Follows with GI yearly for colostomy.LisinoprilFollows with PCP every 5-6 months. Recommend continued daily walking, monitor BP regularly. [facility].atorvastatinFollows with PCP every 5-6 monthsDiet and exercise. Continue to follow with PCP regularly. 2022-12-15 07:17:24 Medication Review by prescribing provider or pharmacist documented (1160F)Medication List Documented (1159F)Functional Status Assessed (1170F)Advance Care Directive Advance care planning discussion documented in the medical record (1158F)BMI obtained (3008F)SBP 130-139 (3075F)DBP <80 (3078F)Televideo 30-39min; chronic exacerbation, 2 stable chronic or 1 acute illness add modifier 95Advance care planning discussed and documented in the medical record beneficiary/patient did not wish to or was unable to provide an advance care plan or name a surrogate decision-maker. (1124F)Pain Assessment - NO pain documented (1126F)Continue to see PCP. Follow-up with [facility] as needed for any acute or disease education needs that may arise.Colostomy s/p colon resection 2019. Reports no longer follows with Oncology. Follows with GI yearly for colostomy. ECCA Update 12/15/22:Denies any GI complaints. Does not follow up with Oncologist or GI anymore only with PCP.Denies any complaints.Denies any issues with Colostomy.LisinoprilFollows with PCP every 5-6 months. Recommend continued daily walking, monitor BP regularly. Call [facility] with any elevated BP.ECCA Update 12/15/22:Follows up with PCP once a year. Reports BP has been well controlled. Last BP 132/72 taken by home nurse from [facility] on 11/18/22. Taking:Lisinopril 10 mg Tab QDAdvised to follow low Sodium, low fat, low carb, heart healthy diet.Continue treatment as prescribed. Follow up with PCP as scheduled.Contact CB 24/7 as needed.atorvastatinFollows with PCP every 5-6 monthsDiet and exercise. Continue to follow with PCP regularly. ECCA Update 12/15/22:Follows up with PCP once a year.Denies any acute complaint.Taking:Atorvastatin Calcium 40 mg QDAdvised to follow low fat, low carb, heart healthy diet.Continue treatment as prescribed. Follow up with PCP as scheduled.Contact CB 24/7 as needed.History of CVA (cerebrovascular accident) in 2020No residual effects. Uses cane for support. Denies any acute complaint.Reports chronic left leg pain after colon surgery.Takes Tylenol as needed.Follows up with PCP.Denies pain today. 2023-11-10 11:33:12 Medication Review by prescribing provider or pharmacist documented (1160F)Medication List Documented (1159F)Functional Status Assessed (1170F)Advance Care Directive Advance care planning discussion documented in the medical record (1158F)BMI obtained (3008F)Televideo 30-39min; chronic exacerbation, 2 stable chronic or 1 acute illness add modifier 95Pain Assessment - Pain Documented (1125F)Advance care planning discussed and documented advance care plan or surrogate decision-maker was documented in the medical record. (1123F)Continue to see PCP. Follow-up with [facility] as needed for any acute or disease education needs that may arise.Colostomy s/p colon resection 2019. Reports no longer follows with Oncology. Follows with GI yearly for colostomy. Denies any GI complaints. Does not follow up with Oncologist or GI anymore only with PCP.Denies any complaints.Denies any issues with Colostomy.LisinoprilFollows with PCP every 5-6 months. Recommend continued daily walking, monitor BP regularly. Call [facility] with any elevated BP.ECCA Update 12/15/22:Follows up with PCP once a year. Reports BP has been well controlled. Last BP 132/72 taken by home nurse from [facility] on 11/18/22. Taking:Lisinopril 10 mg Tab QDAdvised to follow low Sodium, low fat, low carb, heart healthy diet.Continue treatment as prescribed. Follow up with PCP as scheduled.Contact CB 24/ as needed.atorvastatinFollows with PCP every 5-6 monthsDiet and exercise. Continue to follow with PCP regularly. ECCA Update 12/15/22:Follows up with PCP once a year.Denies any acute complaint.Taking:Atorvastatin Calcium 40 mg QDAdvised to follow low fat, low carb, heart healthy diet.Continue treatment as prescribed. Follow up with PCP as scheduled.Contact CB 24/7 as needed.History of CVA (cerebrovascular accident) in 2019No residual effects. Uses cane for support. Denies any acute complaint.Reports chronic left leg pain after colon surgery.Takes Tylenol as needed.Follows up with PCP.Denies pain today. 11/10/23: He reports chronic L leg pain, he is taking tylenol with good effect.When member to call: 1. If bp is elevated sbp>150; dbp>90 or symptomatic-h/a, dizziness, cp, sob. 2. if there is a fall 3. if BS >300 or BS<90 or symptomatic; i.e., dizzy, off balance , shaky, general weakness. 4. if UTI symptoms arise-urinary frequency, dysuria, low abd pain. 5. if pain in knees increases/ or joint pain increased Please remember to call [facility] to see PCP. Follow-up with [facility] as needed for any acute or disease education needs that may arise 22/11.what should be done when the member calls: see each individual diagnosis for contingency plan Goals Date Goal 2022-03-08 Remember to monitor your blood pressure regularly. 2022-03-08 Call me if you feel sick or ill, notice changes in behavior, or have any concerns. 2022-03-08 Keep it up walking d aily. 2022-12-15 Remember to keep all appointments with your PCP and specialists. Call 22/11 if you have questions or concerns. Discussed how to contact [facility] via phone or tablet. 22/11 phone number provided. Health Concerns Date Concern 2023-11-10 Visit completed gui sandhu audio and video. Patient/Guardian agreed to visit via telehealth. Today, patient has chief complaint of: follow up care and comprehensive review.Reviewed Allergies, Medications, Active Medical conditions, past medical/surgical history, Social history. 2023-11-10 Most recent hospital stay(s) or ER visit(s) and precipitating factors: Denies 2023-11-10 Open HEDIS Measure r ruby: Reviewed 2023-11-10 Advance Care Plan Co nversationDate of Conversation: 11/10/2023Life Limiting Diagnosis: Diagnosis:Currently on Hospice NoCode Status: YES CPR: Attempt ResuscitationGoals of Care: Curative: Attempt to sustain life by all medically effective meansNutrition goals: No decision made about nutrition today; not discussedDo you have a Durable Power of Field Investigator for Healthcare, or Healthcare Proxy Or Guardianship? Yes, preferred proxy but not named POAIf so, Who? Vani Calzada you have a written Advance Directive? Has Advance DirectiveOther details of discussion: Patient had HCP in the home that he will bring to PCP during his next appt. He expressed his desire to continue to seek medical interventions and remain a Full Code status at this timeToday's plan: Advised patient to discuss wishes with [id number] : AD or surrogate was documented in the medical record.
--- NOTE | 2024-12-06 15:40 | MHC.PC.OV ---
Vital Signs 12/06/24 15:41 Height 5 ft 3 in Weight 144 lb BMI 25.5 BP 126/72 Blood Pressure Location Lt brachial Position Sitting Intake Visit Reasons: annual physical Intake Note: Patient here for an annual exam Family Consultant Required: No Accompanied by: Grand Child Allergies oxycodone Allergy (Intermediate, Verified 12/06/24 15:50) Rash Medication List - Last Reconciled 12/06/24 by Yolande Moseley MD acetaminophen 500 mg PO Q6H PRN 30 days aspirin 81 mg PO DAILY 90 days atorvastatin 40 mg PO DAILY lisinopril 10 mg PO DAILY 90 days ostomy adhesive (Stomahesive Paste) 1 appl miscellaneous Q OTHER DAY ostomy supplies (Active Life Convex Drainable Pouch) As directed ostomy supplies As directed ostomy supplies (Skin Prep Wipes) As directed, Tobacco use date assessed: 12/06/24 Fall risk assessment: No Falls in past year Last assessed Fall Risk: 12/06/24 Dental Screening Dental Screen Date: 12/06/24 Did you have a dental visit in the last 12 months?: No Did you have a dental problem in the last 6 months where you did not have access to dental care?: No Was dental information given to patient?: Patient declined HPI HPI Comments History of Present Illness Details The patient is an 84-year-old male presenting with a request for a physical examination and preventative care measures. He has a history of colon cancer for which he underwent a hemicolectomy. There is no known family history of cancer as his parents did not have any diagnosed conditions. The patient received a pneumonia vaccine at the age of 81. He has not yet received the tetanus vaccine, which was discussed during the visit. The patient has a history of smoking but has since quit. He consumes alcohol daily, with a preference for beer, consuming approximately four to seven beers per day. [facility] Medical History Blurry vision Encounter for physical examination Pure hypercholesterolemia Essential hypertension Colostomy in place CVA (cerebral vascular accident) Left hip pain Neuropathy Surgical History History of hemicolectomy Family History Father Medical history unknown Mother Medical history unknown Social History Housing: Apartment Alcohol intake: current Alcohol intake frequency: a few times a week Alcohol type: beer Patient Tobacco Use Status: Former Tobacco user Tobacco use type: Cigarette e-Cigarette/Vaping Use: Never Used Second Hand Smoke Exposure: No service: No Current occupational status: disabled Cognitive needs: Yes Hearing needs: No Vision needs: Yes Questionnaire PHQ-9 Over the last 2 weeks, how often have you been bothered by any of the following problems? 1. Little interest or pleasure in doing things: not at all 2. Feeling down, depressed, or hopeless: not at all 3. Trouble falling or staying asleep, or sleeping too much: not at all 4. Feeling tired or having little energy: not at all 5. Poor appetite or overeating: not at all 6. Feeling bad about yourself - or that you are a failure or have let yourself or your family down: not at all 7. Trouble concentrating on things, such as reading the newspaper or watching television: not at all 8. Moving or speaking so slowly that other people could have noticed. Or the opposite - being so fidgety or restless that you have been moving around a lot more than usual: not at all 9. Thoughts that you would be better off or of hurting yourself in some way: not at all Total score: 0 Depression Screening Interpretation: Negative Depression Screening Done: Yes 64099 - PHQ-9 Billing: Yes Source: Developed by Drs. Bunny Lomax, Tequila Blanton, Yonatan Kim and colleagues, with an educational anuja from [employer]. Thrive Questionnaire Date Thrive assessed: 12/06/24 I am a: Patient What is your living situation today?: I have a steady place to live Within the past 12 months, did the food you bought not last and you didn't have the money to get more?: Never true Within the past 12 months, did you worry whether your food would run out before you got money to buy more?: Never true Do you have trouble paying for medicines?: No Do you have trouble getting transportation to medical appointments?: No Do you have trouble paying your heating and electricity bill?: No Do you have trouble taking care of your child, family member or friend?: No Do you have trouble with day-to-day activities such as bathing, preparing meals, shopping, managing finances, etc.?: No Are you currently unemployed and looking for a job?: No Are you interested in more education?: No Please select the resources that you would like help with: None Currently or been in a relationship where the following occur: No concerns reported THRIVE Score: 0 AUDIT C Alcohol Use Questionnaire (AUDIT-C) 1. How often do you have a drink containing alcohol?: 4 or more times a week 2. How many drinks containing alcohol do you have on a typical day when you are drinking?: 1 or 2 3. How often do you have six or more drinks on one occasion?: Never Total Score: 4 Score Reviewed/Action Taken: Yes ZENY-7 AMB Questionnaire ZENY-7 Date ZENY - 7 assessed: 12/06/24 Feeling nervous, anxious, or on edge: 0 = Not at all Not being able to stop or control worryin = Not at all Worrying too much about different things: 0 = Not at all Trouble relaxin = Not at all Being so restless that it is hard to sit still: 0 = Not at all Becoming easily annoyed or irritable: 0 = Not at all Feeling afraid as if something awful might happen: 0 = Not at all Total ZENY-7 score (0-4 normal; 5-9 mild; 10-14 moderate; 15-21 severe): 0 Source: Developed by Drs. Bunny Lomax, Tequila Blanton, Yonatan Kim and colleagues, with an educational anuja from [employer]. ZENY-7 Assessment Billing ZENY-7 Assessment Tool: ZENY-7 Assessment 53800 Review of Systems Const All systems reviewed & are unremarkable except as noted in HPI and below Card Denies chest pain at rest, Denies chest pain with activity, Denies edema, Denies irregular heart rhythm, Denies claudication, Denies dyspnea, Denies dyspnea on exertion, Denies orthopnea, Denies paroxysmal nocturnal dyspnea and Denies slow heart rate Resp Denies cough, Denies dyspnea and Denies dyspnea on exertion GI Denies abdominal pain, Denies change in bowel habits, Denies excessive flatus, Denies nausea and Denies vomiting Denies urinary hesitancy, Denies urinary incontinence and Denies urinary urgency Musc Denies abnormal gait, Denies atrophy, Denies deformity and Denies limited range of motion Skin/Breast Denies bleeding lesions, Denies changing lesions and Denies rash Neuro Denies abnormal gait, Denies behavioral changes and Denies lack of coordination Psych Denies behavioral changes Physical exam (Primary Care) Tobacco/Smoking Status: Tobacco use Status Tobacco use date assessed 11/23/23 11/23/23 14:56 Patient Tobacco Use Status Former Tobacco user 11/23/23 15:08 Tobacco use type Cigarette 11/23/23 15:08 e-Cigarette/Vaping Use Never Used 11/23/23 15:08 Depression Screening Interpretation: Negative Thrive Assessment: Date of Thrive Assessment Date Thrive assessed 11/23/23 11/23/23 14:56 Currently or been in a relationship where the following occur: No concerns reported Const Limitations: ambulation with cane HENMT Head: Yes normal to inspection, Yes normocephalic and Yes atraumatic Ears: external ears normal Eyes General: appearance normal, both eyes and all related structures Eyelids: Yes eyelids normal Conjunctivae: conjunctivae normal Neck Neck: Yes normal visual inspection and Yes supple Resp Effort & Inspection: normal respiratory effort Auscultation: clear to auscultation bilaterally Cardio Jugular venous distension: no JVD Rate: regular rate Rhythm: regular rhythm Heart sounds: S1 normal heart sound present and S2 normal heart sound present GI Inspection: Yes normal to inspection Palpation (GI): Soft to palpation and nontender Auscultation: normal bowel sounds Skin General skin exam: no rashes or lesions noted Neuro General: no focal motor deficits Extrem General: Yes full ROM Psych Appearance: grossly normal Coding Level of Care Code Est Pt Prev Care >65y(29569) Diagnoses Physical exam Z00.00 Colon adenocarcinoma C18.9 Additional Codes PHQ-9 - 36474 - PHQ-9 Billing: Yes ([id number]) ZENY-7 Assessment Billing - ZENY-7 Assessment Tool: ZENY-7 Assessment 13338 ([id number]) Time Spent (min) 31 Assessment & Plan Assessment & Plan (1) Physical exam: Code(s): Z00.00 - Encounter for general adult medical examination without abnormal findings Category: Medical (2) Colon adenocarcinoma: Code(s): C18.9 - Malignant neoplasm of colon, unspecified Category: Medical Plan The patient will continue with regular follow-ups for colon cancer surveillance post-hemicolectomy. A tetanus vaccination is recommended as it has not yet been administered because he declines. The patient is advised to reduce alcohol consumption due to the high daily intake reported. Patient was informed and verbally consented to the use of an ambient scribe for clinic note documentation during this visit. Orders: Orders Lipid Panel Today E78.5 - Hyperlipidemia, unspecified Comprehensive [place]. Panel Fast Today Z00.00 - Encounter for general adult medical examination without abnormal findings
[2024-12-06 15:41] VITALS: BP 126/72; BMI 25.5
== END 2024-12-06 16:01 | disposition home or self-care (01) ==
LOC: HO.HMCH 15:36
PROVIDERS: PCP Internal Medicine; Visit Provider Internal Medicine
DX: Z00.00 Encounter for general adult medical examination without abnormal findings (principal); C18.9 Malignant neoplasm of colon, unspecified

== ENCOUNTER → 2024-12-06 15:35 | Outpatient (BNVA) | payer MEDICARE, SELFPAY | PROVIDERS: PCP Internal Medicine; Visit Provider Internal Medicine | DX: Z00.00 Encounter for general adult medical examination without abnormal findings (principal); C18.9 Malignant neoplasm of colon, unspecified; E78.5 Hyperlipidemia, unspecified; Z87.891 Personal history of nicotine dependence | CPT/HCPCS: 96127; 99397 ==